=== PATIENT | female | born 1990 | race Native Hawaiian/Other Pacific Islander ===

== ENCOUNTER 2020-03-13 12:40 | Emergency (ER) | payer SELFPAY ==
[2020-03-13] MEDS ORDERED: ACETAMINOPHEN 325 MG TAB PO ONE (13:03)
[2020-03-13] MEDS ORDERED: ACETAMINOPHEN 325 MG TAB ONE (13:05)
[2020-03-13] MEDS ORDERED: SODIUM CHLORIDE 0.9% 1000 ML IV SOLN IV ONE (13:24)
--- NOTE | 2020-03-13 13:24 | Emergency Department Report ---
Blank Doc - Documentation Documentation: 29-year-old female that presents with cough, fever, chills, delarosa aches. This initial assessment/diagnostic orders/clinical plan/treatment(s) is/are subject to change based on patient's health status, clinical progression and re- assessment by fellow clinical providers in the ED. Further treatment and workup at subsequent clinical providers discretion. Patient/guardians urged not to elope from the ED as their condition may be serious if not clinically assessed and managed. Initial orders include: 1- Patient sent to MAIN ED for further evaluation and treatment 2- labs 3- CXR
--- NOTE | 2020-03-13 13:56 | XRay Report ---
CHEST 1 VIEW INDICATION / CLINICAL INFORMATION: cough. COMPARISON: None available. FINDINGS: SUPPORT DEVICES: None. HEART / MEDIASTINUM: No significant abnormality. LUNGS / PLEURA: No significant pulmonary or pleural abnormality. No pneumothorax. ADDITIONAL FINDINGS: No significant additional findings. IMPRESSION: 1. No acute findings. Signer Name: Rolando Maxwell MD Signed: 03/13/2020 1:52 PM Workstation Name: [id number]
[2020-03-13 14:13] LABS: Basophils % (Auto) 0.3 % (0.0-1.8); Eosinophils % (Auto) 0.6 % (0.0-4.3); Hematocrit 42.1 % (30.3-42.9); Hemoglobin 13.8 gm/dl (10.1-14.3); Lymphocytes # (Auto) 0.3 K/mm3 (1.2-5.4); Lymphocytes % (Auto) 4.9 % (13.4-35.0); Mean Corpuscular HGB Conc 33 % (30-34); Mean Corpuscular Volume 81 fl (79-97); Monocytes # (Auto) 0.8 K/mm3 (0.0-0.8); Monocytes % (Auto) 12.6 % (0.0-7.3); Platelet Count 270 K/mm3 (140-440); Red Blood Count 5.18 M/mm3 (3.65-5.03); Red Cell Distribution Width 13.6 % (13.2-15.2)
[2020-03-13 14:24] LABS: Alanine Aminotransferase 18 units/L (7-56); Albumin 4.6 g/dL (3.9-5); BUN/Creatinine Ratio 11; Blood Urea Nitrogen 9 mg/dL (7-17); Calcium 9.3 mg/dL (8.4-10.2); Hemolysis Index 3
[2020-03-13 15:04] LABS: Bacteria,Urine 1+ /HPF (Negative); Bilirubin,Urine NEG (Negative); Blood,Urine NEG (Negative); Color,Urine Yellow (Yellow); Mucus,Urine 1+ /HPF; Protein,Urine <15 mg/dL mg/dL (Negative); Urobilinogen,Urine < 2.0 mg/dL (<2.0)
[2020-03-13] MEDS ORDERED: SODIUM CHLORIDE 0.9% 500 ML 500 ML ONE (15:50)
[2020-03-13 16:39] VITALS: BP 113/70
--- NOTE | 2020-03-13 17:05 | Emergency Department Report ---
ED Fever HPI - General Chief Complaint: Dyspnea/Respdistress Stated Complaint: FEVER,FATIGUE Time Seen by Provider: 03/13/20 13:21 - History of Present Illness Initial Comments: 29-year-old female, no past medical history, presents to ED with flulike symptoms. Patient states last night she began to have body aches. Today she r eports fever, slight cough, slight shortness of breath. Patient denies loss of smell or taste, congestion, chest pain, vomiting or diarrhea. Patient states she works at [employer]. No known sick contacts. No known exposure to anyone who was tested positive for coronavirus. Timing/Duration: this morning Fever Severity/Quality: subjective Fever Therapy DIPLOMA DENTAL ASSISTANT: Ibuprofen Associated Symptoms: cough, headache, muscle aches, shortness of breath, weakness. denies: nausea/vomiting ED Review of Systems ROS: Stated complaint: FEVER,FATIGUE Other details as noted in HPI Comment: All other systems reviewed and negative Constitutional: fever ENT: denies: throat pain, congestion Respiratory: cough, shortness of breath Cardiovascular: denies: chest pain Gastrointestinal: denies: vomiting, diarrhea Neurological: headache ED Past Medical Hx - Past Medical History Previous Medical History?: No - Surgical History Past Surgical History?: No ED Physical Exam - General Limitations: No Limitations General appearance: alert, in no apparent distress - Head Head exam: Present: atraumatic, normocephalic - Eye Eye exam: Present: normal appearance, EOMI - ENT ENT exam: Present: mucous membranes moist - Neck Neck exam: Present: normal inspection - Respiratory Respiratory exam: Present: normal lung sounds bilaterally. Absent: respiratory distress - Cardiovascular Cardiovascular Exam: Present: regular rate, normal rhythm - GI/Abdominal GI/Abdominal exam: Present: soft. Absent: distended, tenderness - Extremities Exam Extremities exam: Present: normal inspection - Neurological Exam Neurological exam: Present: alert, oriented X3, CN II-XII intact. Absent: motor sensory deficit - Psychiatric Psychiatric exam: Present: normal affect, normal mood - Skin Skin exam: Present: warm, dry, intact, normal color. Absent: rash ED Course Vital Signs 03/13/20 03/13/20 03/13/20 15:03 15:48 16:35 Temperature 101.6 F H Pulse Rate 124 H 76 Respiratory 20 20 Rate Blood Pressure 113/70 Blood Pressure 141/80 [Left] O2 Sat by Pulse 98 99 100 Oximetry 03/13/20 17:00 Temperature 96.7 F L Pulse Rate Respiratory Rate Blood Pressure Blood Pressure [Left] O2 Sat by Pulse Oximetry ED Medical Decision Making - Lab Data Result diagrams: 03/13/20 13:45 03/13/20 13:45 - Radiology Data Radiology results: report reviewed, image reviewed - Medical Decision Making 29 yo F w/ apparent viral illness, possible COVID infection. CXR negative. O2 sats normal, pt is in no resp distress. Vitals improved following IV fluids and tylenol. Lactic acid normal. Will d/c home. Advised to self quarantine x 14 days. Outpt resources given for COVID testing. - Differential Diagnosis COVID-19, pneumonia Critical care attestation.: If time is entered above; I have spent that time in minutes in the direct care of this critically ill patient, excluding procedure time. ED Disposition Clinical Impression: Viral illness, Suspected 2019 novel coronavirus infection Disposition: - TO HOME OR SELFCARE Is pt being admited?: No Condition: Stable Instructions: COVID-19 Additional Instructions: Self-quarantine for 14 days. Your chest xray is normal today. Your oxygen level is normal today. Follow-up information given for outpatient coronavirus testing. Return to the ER if your symptoms worsen. Referrals: [facility] [Provider Group] - [facility] [Outside] - ASIM REEDER MD [Staff Physician] - [facility] Time of Disposition: 17:03
== END 2020-03-13 17:21 | disposition home or self-care (01) ==
LOC: ED 12:40
DX: B34.9 Viral infection, unspecified (principal); Z20.828 Contact with and (suspected) exposure to other viral communicable diseases
CPT/HCPCS: 36415; 71045; 80053; 81001; 82140; 85025; 87040; 87086; 99284; J7030; J7040